=== PATIENT | male | born 1940 | race Caucasian/White ===

== ENCOUNTER 2017-09-04 08:21 | Day surgery (SDC) | payer OTHER ==
--- NOTE | 2017-09-03 16:32 | RAD REPORT ---
EXAM DESCRIPTION: Alok Cardoza (2 Views)09/03/2017 4:17 pm CLINICAL HISTORY: Coronary artery disease/preop COMPARISON: 2016 FINDINGS: The lungs appear clear of acute infiltrate. The heart is mildly enlarged. Post surgical c hanges involve the chest. IMPRESSION: No acute abnormalities displayed
[2017-09-03 17:09] LABS: Absolute Lymphocytes (CBC) 1.8 K/uL (0.7-4.9); Absolute Monocytes 0.8 K/uL (0.1-1.3); Absolute Neutrophil 6.6 K/uL (1.8-8.0); Basophils % 0.7 % (0-1.3); Eosinophils % 4.8 % (0-4.4); Hematocrit 41.3 % (39.6-49.0); Lymphocytes % 18.8 % (15.3-44.8); MCV 87.6 fL (80-100); MPV 9.2 fL (7.6-11.3); Monocytes % 8.1 % (3.3-12.3); RBC Red Blood Cell Count 4.71 M/uL (4.33-5.43)
[2017-09-03 17:12] LABS: Protime INR 0.95
[2017-09-03 17:21] LABS: BUN Blood Urea Nitrogen 13 mg/dL (6-20); Bicarbonate 30 mEq/L (21-31); Glucose Level 125 mg/dL (65-120); Sodium Level 141 mEq/L (135-145)
[2017-09-04] MEDS ORDERED: NA CHLORIDE 0.9% 500 ML ONE (08:32)
[2017-09-04] MEDS ORDERED: MIDAZOLAM HCL 2 MG/2 ML INJ ONE ×2 (09:27→09:46)
[2017-09-04] MEDS ORDERED: LIDOCAINE 1% 20 ML MDV ONE ×2 (09:27→11:00)
[2017-09-04] MEDS ORDERED: FENTANYL CITR 100 MCG/2 ML ONE (09:27)
[2017-09-04] MEDS ORDERED: HEPA 1000U/500MLS 1,000 UNIT/500 ML BAG IV ONE ×2 (09:27→11:00)
[2017-09-04] MEDS ORDERED: NA CHLORIDE 0.9% 50 ML ONE (09:41)
[2017-09-04] MEDS ORDERED: ATROPINE SULF 1 MG/10 ML SYR IV ONE (09:41)
[2017-09-04] MEDS ORDERED: NITROGLYCERIN/D5W 25 MG/250 ML BTL IV ONE (11:20)
[2017-09-04] MEDS ORDERED: CLOPIDOGREL 75 MG TABLET ONE (12:18)
[2017-09-04] MEDS ORDERED: ZOLPIDEM TARTRATE 5 MG TABLET PO PRN (13:51)
[2017-09-04] MEDS ORDERED: Morphine 2 MG/2 ML SYR IV PRN (13:52)
[2017-09-04] MEDS ORDERED: NITROGLYCERIN 0.4 MG/TAB SL PRN (14:00)
[2017-09-04] MEDS ORDERED: NA CHLORIDE 0.9% 1,000 ML IV SCH (14:00)
[2017-09-04] MEDS: ACETAMINOPHEN 325 MG TABLET PO PRN ×2 (15:11→19:28)
[2017-09-04 18:06] VITALS: BMI 33.5
[2017-09-05 00:21] VITALS: O2SAT 95
[2017-09-05 04:41] LABS: Absolute Lymphocytes (CBC) 1.3 K/uL (0.7-4.9); Absolute Monocytes 0.7 K/uL (0.1-1.3); Basophils % 0.4 % (0-1.3); Eosinophils % 5.1 % (0-4.4); Hematocrit 39.6 % (39.6-49.0); Lymphocytes % 15.5 % (15.3-44.8); MCH 29.1 pg (27.0-35.0); MCV 87.4 fL (80-100); MPV 8.8 fL (7.6-11.3); Monocytes % 8.5 % (3.3-12.3); RBC Red Blood Cell Count 4.54 M/uL (4.33-5.43)
[2017-09-05 04:53] LABS: BUN Blood Urea Nitrogen 9 mg/dL (6-20); Bicarbonate 28 mEq/L (21-31); Glucose Level 153 mg/dL (65-120); HDL Cholesterol 61 mg/dL (27-67); LDL Cholesterol, Calculated 60 (<130); Potassium 3.9 mEq/L (3.6-5.0); Sodium Level 140 mEq/L (135-145)
[2017-09-05] MEDS: ACETAMINOPHEN 325 MG TABLET PO PRN (07:41)
[2017-09-05] MEDS ORDERED: ASPIRIN 81 MG CHEWABLE TABLET PO SCH (09:00)
[2017-09-05] MEDS ORDERED: CLOPIDOGREL 75 MG TABLET PO SCH (09:00)
[2017-09-05 10:14] VITALS: BP 126/63; TEMP 97.8
--- NOTE | 2017-09-05 11:58 | EKG ---
Test Date: 2017-09-05 Test Time: 08:37:42 Washing And Screening Plant Supervisor: AMANUEL MEASUREMENT RESULTS: Intervals: Rate: 80 FL: 168 QRSD: 132 QT: 398 QTc: 459 [place]: P: -21 FL: 168 QRS: -49 T: 156 INTERPRETIVE STATEMENTS: Sinus rhythm with premature atrial complexes with aberrant conduction Left axis deviation Nonspecific intraventricular block Inferior infarct, age undetermined T wave abnormality, consider lateral ischemia Abnormal ECG Compared to ECG 04/13/2012 14:15:32 Atrial premature complex(es) now present Aberrant conduction of supraventricular beat(s) now present First degree AV block no longer present Electronically Signed On 09-05-17 11:58:28 CDT by Naman Xiao
--- NOTE | 2017-09-05 17:04 | OP ---
Surgeon: Nicko Garza MD Research Intern: Linda Martinez. Indications: Mr. Coles was admitted as an outpatient for heart catheterization as well as abdominal a ngiogram with runoff initially. He is a 77-year-old with documented coronary artery disease, positiv e Cardiolite, positive arterial Doppler, and claudication. Description Of Procedure: When he came in, he was given 2 mg of Versed for IV sedation, prepped and draped in the routine sterile fashion. The procedure eventually ended up being a selective coronary artery left heart catheterization, vein graft injection, ABRAMS injection, angioplasty, and stent of th e saphenous vein graft to the obtuse marginal. The catheterization was done with a 6-Arabic sheath i ntroduced in the left common femoral artery. The right common femoral artery is completely occluded. Abdominal angiogram with runoff were cancelled because the patient received enough contrast to do t he heart catheterization and intervention. From a coronary standpoint, he had a completely occluded left main. He had a saphenous vein graft to the diagonal that was occluded. The saphenous vein oswald t to the OM showing a 90% proximal stenosis. The saphenous vein graft to the RCA that was occluded. The ABRAMS was open and it actually gave collaterals to the distal RCA. The graft to the obtuse linden nal was dilated with a 2.25 x 15 Emerge balloon and a stent of 2.25 x 16 Synergy was placed with 0% r esidual. No complications. We used 3DRC guide catheter with side holes and a [place] wire. He recei sharon Angiomax, Plavix, and aspirin during the procedure. Complications: None. Blood Loss: 10 cc. Total Conscious Sedation: 1 hour. Final Diagnoses: Coronary artery disease status post angioplasty and stent and graft to the obtuse m arginal. Ticker Installer: Nicko Garza MD. Plan: We will cancel the abdominal angiogram with runoff for now and plan to do within the next 2-3 weeks. JENNY/NIALL Voice ID: [id number] Report ID: [id number]
== END 2017-09-05 10:52 | disposition home or self-care (01) ==
LOC: CCL 08:21 → 4TH 12:07 → CCL 09-05 10:52
DX: I25.10 Atherosclerotic heart disease of native coronary artery without angina pectoris (principal); I25.810 Atherosclerosis of coronary artery bypass graft(s) without angina pectoris; I25.82 Chronic total occlusion of coronary artery; I70.213 Atherosclerosis of native arteries of extremities with intermittent claudication, bilateral legs; I10 Essential (primary) hypertension; E78.5 Hyperlipidemia, unspecified; E78.6 Lipoprotein deficiency; E11.9 Type 2 diabetes mellitus without complications; Z95.5 Presence of coronary angioplasty implant and graft; Z87.891 Personal history of nicotine dependence
CPT/HCPCS: 36415 ×2; 71046; 80048 ×2; 80061; 82962; 85025 ×2; 85347 ×2; 85610; 85730; 93005; 93455; C1725; C1760; C1893; C9604; J0583; J2250 ×2; J3010

== ENCOUNTER 2017-09-25 06:36 | Day surgery (SDC) | payer OTHER ==
[2017-09-20 14:10] LABS: Absolute Lymphocytes (CBC) 1.8 K/uL (0.7-4.9); Absolute Monocytes 0.7 K/uL (0.1-1.3); Absolute Neutrophil 5.3 K/uL (1.8-8.0); Basophils % 0.6 % (0-1.3); Hematocrit 39.9 % (39.6-49.0); Lymphocytes % 20.9 % (15.3-44.8); MCH 29.2 pg (27.0-35.0); MCV 87.9 fL (80-100); MPV 8.7 fL (7.6-11.3); Monocytes % 8.4 % (3.3-12.3); RBC Red Blood Cell Count 4.53 M/uL (4.33-5.43)
[2017-09-20 14:15] LABS: Protime INR 0.96
[2017-09-20 15:18] LABS: BUN Blood Urea Nitrogen 14 mg/dL (6-20); Bicarbonate 27 mEq/L (21-31); Glucose Level 115 mg/dL (65-120); Potassium 3.8 mEq/L (3.6-5.0); Sodium Level 141 mEq/L (135-145)
[2017-09-25] MEDS ORDERED: LIDOCAINE 1% 20 ML MDV ONE (06:44)
[2017-09-25] MEDS ORDERED: NA CHLORIDE 0.9% 500 ML ONE (06:44)
[2017-09-25] MEDS ORDERED: HEPA 1000U/500MLS 2,000 UNIT/1,000 ML BAG IV ONE (07:32)
[2017-09-25] MEDS ORDERED: MIDAZOLAM HCL 2 MG/2 ML INJ ONE (07:44)
[2017-09-25] MEDS ORDERED: FENTANYL CITR 100 MCG/2 ML ONE (07:44)
[2017-09-25] MEDS ORDERED: HEPARIN 5000 UNIT/ML 1 ML VIAL ONE (08:30)
[2017-09-25 12:52] VITALS: BP 138/63
[2017-09-25 12:53] VITALS: TEMP 97.6; O2SAT 96
--- NOTE | 2017-09-27 08:14 | OP ---
Surgeon: Nicko Garza MD Solder Sprayer: Janet Martinez. The patient cannot have the surgery if we need to do it before February of next year because he needs to be on the Plavix till then. He just recently had a vein graft angioplasty and stent of the . Procedure: Abdominal angiogram with runoff with attempted angioplasty of the right common iliac annabella ry. Indication For The Procedure: Peripheral vascular disease and claudication. Description Of Procedure: The patient was brought in as an outpatient, prepped and draped in the rou lili sterile fashion, given 2 mg of Versed for IV sedation. A 6-Bulgarian sheath was introduced into le ft common femoral artery. A pigtail catheter was advanced above the renal. Abdominal angiography re vealed normal renal, normal hepatic and splenic artery. Distal was normal. The left comm on iliac was normal with minimal plaquing distally in the SFA. The right common iliac artery was com pletely occluded at the ostium with reconstitution at about the common femoral artery area with minim al disease at the distal SFA on the right side. I decided to attempt to open up the right common doreen ac artery . The patient is symptomatic on the right leg. I cannulated the right common fe moral artery with a 6-Bulgarian sheath. I attempted J-wire glidewire, all of which was done to penetrate the lesion of the right common iliac artery . Total conscious bruce tion was 30 minutes. The patient tolerated the procedure well. Blood loss was 5 cc. There were no complications. Final Diagnosis: Severe peripheral arterial disease. Plan: For a possible aortofemoral surgery or a fem-fem bypass. JENNY/NIALL Voice ID: [id number] Report ID: [id number]
== END 2017-09-25 13:11 | disposition home or self-care (01) ==
LOC: CCL 06:36
DX: I70.213 Atherosclerosis of native arteries of extremities with intermittent claudication, bilateral legs (principal); I70.92 Chronic total occlusion of artery of the extremities; I25.10 Atherosclerotic heart disease of native coronary artery without angina pectoris; R07.89 Other chest pain; I10 Essential (primary) hypertension; E11.9 Type 2 diabetes mellitus without complications; E78.5 Hyperlipidemia, unspecified; E78.6 Lipoprotein deficiency; Z87.891 Personal history of nicotine dependence; Z95.1 Presence of aortocoronary bypass graft
CPT/HCPCS: 36415; 37220; 75630; 80048; 82962 ×2; 85025; 85347; 85610; 85730; C1893; J1644; J2250; J3010

== ENCOUNTER 2018-04-11 21:22 | Inpatient (IN) | payer OTHER ==
[2018-04-11] MEDS ORDERED: AMIODARONE HCL 150 MG/3 ML INJ IV ONE (21:39)
[2018-04-11] MEDS ORDERED: AMIODARONE HCL 900 MG in Dextrose 5%-Water 482 ML IV SCH (21:45)
[2018-04-11] MEDS ORDERED: AMIODARONE Inj 900 MG/18 mL (=50 MG/ML) VIAL IV ONE (21:47)
[2018-04-11 22:04] LABS: Absolute Monocytes 0.9 K/uL (0.1-1.3); Absolute Neutrophil 9.1 K/uL (1.8-8.0); Basophils % 0.3 % (0-1.3); Eosinophils % 0.6 % (0-4.4); Lymphocytes % 9.3 % (15.3-44.8); MCH 29.5 pg (27.0-35.0); MCV 87.5 fL (80-100); MPV 9.1 fL (7.6-11.3); Monocytes % 8.4 % (3.3-12.3); RBC Red Blood Cell Count 4.46 M/uL (4.33-5.43)
[2018-04-11 22:06] LABS: Protime INR 1.12
[2018-04-11 22:42] LABS: Albumin 3.7 g/dL (3.4-5.0); Bilirubin Direct 0.3 mg/dL (0-0.2); Bilirubin Total 1.1 mg/dL (0.2-1.0); Magnesium 1.7 mg/dL (1.8-2.4); Potassium 3.7 mmol/L (3.5-5.1); Protein, Total 6.9 g/dL (6.4-8.2)
--- NOTE | 2018-04-11 22:42 | ER ---
Nurse's Notes [facility] Name: Jayden Coles Age: 78 yrs Sex: Male : 1940 Arrival Date: 04/11/2018 Time: 21:29 Bed 5 Private MD: Diagnosis: Ventricular tachycardia;Weakness;Hypoxemia Presentation: 04/11 21:39 Presenting complaint: EMS states: Pt was placed on heart monitor by Dr. Garza on tl2 Sunday. Pt started feeling dizzy and weak today with episodes of chest pain and left shoulder pain. Pt given 324 aspirin and 1 nitro on EMS. Pt began having runs of Vtach on arrival to ED. Pt denies shortness of breath or severe pain, Pt is AOx4. Transition of care: patient was not received from another setting of care. Onset of symptoms was April 11, 2018. Risk Assessment: Do you want to hurt yourself or someone else? Patient reports no desire to harm self or others. Initial Sepsis Screen: Does the patient meet any 2 criteria? No. Patient's initial sepsis screen is negative. Does the patient have a suspected source of infection? No. Patient's initial sepsis screen is negative. Care prior to arrival: Medication(s) given: ASA, 81 mg, x 4, Nitroglycerin, 0.4 mg SL x 1. 21:39 Method Of Arrival: EMS: [facility] tl2 21:39 Acuity: RIRI 2 tl2 Triage Assessment: 21:46 General: Appears in no apparent distress. uncomfortable, Behavior is calm, cooperative, tl2 appropriate for age. Pain: Complains of pain in left shoulder. Neuro: Level of Consciousness is awake, alert, obeys commands, Oriented to person, place, time, situation. Cardiovascular: Denies chest pain, shortness of breath. Respiratory: Reports cough that is Airway is patent Respiratory effort is even, unlabored, Respiratory pattern is regular, symmetrical. GI: No signs and/or symptoms were reported involving the gastrointestinal system. : No signs and/or symptoms were reported regarding the genitourinary system. Derm: Skin is pink, warm \T\ dry. Historical: - Allergies: 21:46 No Known Allergies; tl2 - Home Meds: 21:46 metformin 500 mg Oral tab 1 tab 2 times per day [Active]; tamsulosin 0.4 mg oral cp24 1 tl2 cap once daily [Active]; atorvastatin 20 mg oral tab 1 tab once daily [Active]; clopidogrel 75 mg oral tab 1 tab once daily [Active]; metoprolol tartrate 50 mg Oral tab 1 tab 2 times per day [Active]; doxazosin 2 mg oral tab 1 tab once daily [Active]; levothyroxine 112 mcg tab 1 tab once daily [Active]; gabapentin 300 mg oral cap 1 cap 3 times per day [Active]; glimepiride 2 mg Oral tab 1 tab once daily [Active]; amlodipine 10 mg tab 1 tab once daily [Active]; Anoro Ellipta 62.5-25 mcg/actuation inhalation dsdv 1 puff once daily [Active]; - PMHx: 21:46 COPD; Diabetes - NIDDM; Atrial Fib; Hypertension; tl2 - PSHx: 21:46 stent; bypass; tl2 - Immunization history:: Adult Immunizations up to date. - Social history:: Smoking status: Patient/guardian denies using tobacco. - Ebola Screening: : No symptoms or risks identified at this time. Screenin:50 Abuse screen: Denies threats or abuse. Nutritional screening: No deficits noted. tl2 Tuberculosis screening: No symptoms or risk factors identified. Fall Risk IV access (20 points). Assessment: 21:48 General: see triage assessment. tl2 21:58 Reassessment: Pt had short run of Vtach lasting 3 seconds. Pt asymptomatic. tl2 22:37 Reassessment: Patient appears in no apparent distress at this time. Patient and/or tl2 family updated on plan of care and expected duration. Pain level reassessed. Patient is alert, oriented x 3, equal unlabored respirations, skin warm/dry/pink. Pt resting comfortably, no complaints at this time. Amiodarone infusing. 23:19 Reassessment: Patient appears in no apparent distress at this time. Patient and/or tl2 family updated on plan of care and expected duration. Pain level reassessed. Patient is alert, oriented x 3, equal unlabored respirations, skin warm/dry/pink. Awaiting for ICU assignment. 23:40 Reassessment: Pt had another two short runs of Vtach, BP remains stable and pt remains tl2 asymptomatic. Will call report to get pt transferred to unit. Vital Signs: 21:25 BP 138 / 84; Pulse 103; Resp 20; Pulse Ox 89% on 4 lpm NC; Weight 95.25 kg; Height 5 tl2 ft. 10 in. (177.80 cm); 21:30 BP 124 / 73; Pulse 108; Resp 20; Pulse Ox 87% on 4 lpm NC; tl2 21:50 BP 117 / 70; Pulse 118; Resp 20; Pulse Ox 88% on 4 lpm NC; tl2 22:19 BP 116 / 81; Pulse 92; Resp 20; Pulse Ox 87% on 4 lpm NC; tl2 22:36 BP 124 / 72; Pulse 84; Resp 20; Pulse Ox 89% on 4 lpm NC; tl2 23:19 BP 120 / 66; Pulse 88; Resp 21; Pulse Ox 91% on 4 lpm NC; tl2 23:40 BP 118 / 64; Pulse 94; Resp 20; Pulse Ox 92% on 4 lpm NC; tl2 21:25 Body Mass Index 30.13 (95.25 kg, 177.80 cm) tl2 Vitals: 21:25 Cardiac Rhythm Assessment Atrial fibrillation. tl2 22:19 Cardiac Rhythm Assessment Atrial fibrillation. tl2 22:36 Cardiac Rhythm Assessment Atrial fibrillation W/PVC's. tl2 ED Course: 21:29 Patient arrived in ED. fc 21:31 EKG done, by ED staff, reviewed by Freddy Godoy MD. mt 21:32 Jami Nolan, MARISSA is Primary Nurse. aj 21:37 Freddy Godoy MD is Attending Physician. tw4 21:41 Triage completed. tl2 21:46 Arm band placed on right wrist. EKG completed in triage. Results shown to MD. tl2 21:50 Maintain EMS IV. Dressing intact. Good blood return noted. Site clean \T\ dry. Gauge \T\ tl 2 site: 20 g L AC. 21:50 Inserted saline lock: 20 gauge in right antecubital area, using aseptic technique. tl2 Blood collected. 21:50 Patient has correct armband on for positive identification. Bed in low position. Call tl2 light in reach. Side rails up X2. Adult w/ patient. 21:52 XRAY Chest (1 view) In Process Unspecified. EDMS 21:55 Primary Nurse role handed off by Jami Nolan, RN tl2 21:55 Coleen Meier RN is Primary Nurse. tl2 22:39 Carine Alonzo MD is Hospitalizing Provider. tw4 22:42 Notified ED physician of a critical lab result(s). trop 0.72. 04/12 00:10 Murray cath inserted, using sterile technique, 16 Fr., by airplane electrician, balloon inflated, to tl2 gravity drainage, urine specimen collected. returned clear yellow urine. Patient tolerated well. 00:39 No provider procedures requiring assistance completed. Patient admitted, IV remains in tl2 place. Administered Medications: 04/11 21:38 Drug: amiodarone 150 mg Route: IVP; Site: left antecubital; tl2 23:00 Follow up: Response: No adverse reaction; Cardiac rhythm is unchanged tl2 21:45 Drug: amiodarone 900 mg, D5W 500 ml Route: IVPB; Rate: 1 mg/min; Site: right fc antecubital; 04/12 00:41 Follow up: IV Status: Infusion continued upon admission tl2 04/11 23:17 Drug: Heparin (AZ-Bolus No thrombolytic) - HEParin 60 units/kg {Co-Signature: aa1 tl2 (Melani Miranda RN).} Route: IVP; Site: left antecubital; 04/12 00:41 Follow up: Response: No adverse reaction tl2 04/11 23:17 Drug: Lasix 40 mg Route: IVP; Site: left antecubital; tl2 04/12 00:41 Follow up: Response: No adverse reaction tl2 04/11 23:18 Drug: Heparin ([place] Drip) 12 units/kg/hr - (HEParin 76145 units, D5W 500 ml) tl2 {Co-Signature: aa1 (Melani Miranda RN).} Route: IV; Rate: calculated rate; Site: left antecubital; 04/12 00:41 Follow up: IV Status: Infusion continued upon admission tl2 Outcome: 04/11 22:41 Decision to Hospitalize by Provider. tw4 04/12 00:40 Admitted to ICU accompanied by nurse, accompanied by tech, family with patient, via tl2 stretcher, room 7, with oxygen, on monitor, with chart, Report called to MARISSA Serrano Condition: stable Discharge instructions given to patient, family, Instructed on the need for admit. 00:42 Patient left the ED. tl2 Signatures: Dispatcher [employer] Jami Ratliff RN Angelita Garcia RN RN Coleen Meier RN RN 2 Abigail Carrillo mt, Terrence, MD MD tw4 Melani Miranda RN aa1 Corrections: (The following items were deleted from the chart) 04/11 21:50 21:46 BP 138 / 84; Pulse 103bpm; Resp 20bpm; Pulse Ox 89% 3 lpm Nasal Cannula; tl2 tl2 22:20 21:25 BP 138 / 84; Pulse 103bpm; Resp 20bpm; Pulse Ox 89% 3 lpm Nasal Cannula; tl2 tl2 23:01 21:25 BP 138 / 84; Pulse 103bpm; Resp 20bpm; Pulse Ox 89% 3 lpm Nasal Cannula; 99.79 tl2 kg; Height 5 ft. 10 in.; BMI: 31.5; tl2 04/12 00:39 04/11 21:30 BP 124 / 73; Pulse 108bpm; Resp 20bpm; Pulse Ox 87% 3 lpm Nasal Cannula; tl2tl2 04/12 00:39 04/11 21:50 BP 117 / 70; Pulse 118bpm; Resp 20bpm; Pulse Ox 88% 3 lpm Nasal Cannula; tl2tl2 04/12 00:39 04/11 22:19 BP 116 / 81; Pulse 92bpm; Resp 20bpm; Pulse Ox 87% 3 lpm Nasal Cannula; tl2 tl2 04/12 00:39 04/11 22:36 BP 124 / 72; Pulse 84bpm; Resp 20bpm; Pulse Ox 89% 3 lpm Nasal Cannula; tl2 tl2 04/12 00:39 04/11 21:25 BP 138 / 84; Pulse 103bpm; Resp 20bpm; Pulse Ox 89% 3 lpm Nasal Cannula; tl2 95.25 kg; Height 5 ft. 10 in.; BMI: 30.1; tl2 04/12 00:39 04/11 23:19 BP 120 / 66; Pulse 88bpm; Resp 21bpm; Pulse Ox 91% 3 lpm Nasal Cannula; tl2 tl2
[2018-04-11 22:43] LABS: Troponin (Emerg Dept Use Only) 0.72 ng/mL (0.0-0.045)
--- NOTE | 2018-04-11 22:43 | EDPHYS ---
Physician Documentation [facility] Name: Jayden Head Age: 78 yrs Sex: Male : 1940 Arrival Date: 04/11/2018 Time: 21:29 Bed 5 Private MD: ED Physician Freddy Godoy HPI: 04/11 23:45 This 78 yrs old Male presents to ER via EMS with complaints of Arrhythmia. tw4 23:45 The patient or guardian reports chest pain that is located primarily in the anterior tw4 chest wall. Onset: today. The pain does not radiate. Associated signs and symptoms: The patient has no apparent associated signs or symptoms. The chest pain is described as dull. Duration: The patient or guardian reports a single episode, that is still ongoing, but improving. Modifying factors: The symptoms are alleviated by nothing. the symptoms are aggravated by nothing. Severity of pain: At its worst the pain was moderate in the emergency department the pain is unchanged. EMS care prior to arrival includes: IV fluids, supplemental oxygen. The patient has experienced a previous episode. The patient has been recently seen at the [facility] Emergency Department, a couple of weeks ago. Historical: - Allergies: 21:46 No Known Allergies; tl2 - Home Meds: 21:46 metformin 500 mg Oral tab 1 tab 2 times per day [Active]; tamsulosin 0.4 mg oral cp24 1 tl2 cap once daily [Active]; atorvastatin 20 mg oral tab 1 tab once daily [Active]; clopidogrel 75 mg oral tab 1 tab once daily [Active]; metoprolol tartrate 50 mg Oral tab 1 tab 2 times per day [Active]; doxazosin 2 mg oral tab 1 tab once daily [Active]; levothyroxine 112 mcg tab 1 tab once daily [Active]; gabapentin 300 mg oral cap 1 cap 3 times per day [Active]; glimepiride 2 mg Oral tab 1 tab once daily [Active]; amlodipine 10 mg tab 1 tab once daily [Active]; Anoro Ellipta 62.5-25 mcg/actuation inhalation dsdv 1 puff once daily [Active]; - PMHx: 21:46 COPD; Diabetes - NIDDM; Atrial Fib; Hypertension; tl2 - PSHx: 21:46 stent; bypass; tl2 - Immunization history:: Adult Immunizations up to date. - Social history:: Smoking status: Patient/guardian denies using tobacco. - Ebola Screening: : No symptoms or risks identified at this time. ROS: 23:45 Constitutional: Negative for fever, chills, and weight loss, Eyes: Negative for injury, tw4 pain, redness, and discharge, Respiratory: Negative for shortness of breath, cough, wheezing, and pleuritic chest pain, Abdomen/GI: Negative for abdominal pain, nausea, vomiting, diarrhea, and constipation. 23:45 Back: Negative for injury and pain, MS/Extremity: Negative for injury and deformity, Skin: Negative for injury, rash, and discoloration, Neuro: Negative for headache, weakness, numbness, tingling, and seizure. 23:45 Cardiovascular: Positive for chest pain, Negative for edema, orthopnea, palpitations, paroxysmal nocturnal dyspnea. Exam: 23:45 Constitutional: This is a well developed, well nourished patient who is awake, alert, tw4 and in no acute distress. Head/Face: Normocephalic, atraumatic. Chest/axilla: Normal chest wall appearance and motion. Nontender with no deformity. No lesions are appreciated. Respiratory: Lungs have equal breath sounds bilaterally, clear to auscultation and percussion. No rales, rhonchi or wheezes noted. No increased work of breathing, no retractions or nasal flaring. Abdomen/GI: Soft, non-tender, with normal bowel sounds. No distension or tympany. No guarding or rebound. No evidence of tenderness throughout. Back: No spinal tenderness. No costovertebral tenderness. Full range of motion. 23:45 Skin: Warm, dry with normal turgor. Normal color with no rashes, no lesions, and no evidence of cellulitis. MS/ Extremity: Pulses equal, no cyanosis. Neurovascular intact. Full, normal range of motion. Neuro: Awake and alert, GCS 15, oriented to person, place, time, and situation. Cranial nerves II-XII grossly intact. Motor strength 5/5 in all extremities. Sensory grossly intact. Cerebellar exam normal. Normal gait. 23:45 Cardiovascular: Rate: tachycardic, Rhythm: regular. 04/12 00:10 ECG was reviewed by the Attending Physician. tw4 Vital Signs: 04/11 21:25 BP 138 / 84; Pulse 103; Resp 20; Pulse Ox 89% on 4 lpm NC; Weight 95.25 kg; Height 5 tl2 ft. 10 in. (177.80 cm); 21:30 BP 124 / 73; Pulse 108; Resp 20; Pulse Ox 87% on 4 lpm NC; tl2 21:50 BP 117 / 70; Pulse 118; Resp 20; Pulse Ox 88% on 4 lpm NC; tl2 22:19 BP 116 / 81; Pulse 92; Resp 20; Pulse Ox 87% on 4 lpm NC; tl2 22:36 BP 124 / 72; Pulse 84; Resp 20; Pulse Ox 89% on 4 lpm NC; tl2 23:19 BP 120 / 66; Pulse 88; Resp 21; Pulse Ox 91% on 4 lpm NC; tl2 23:40 BP 118 / 64; Pulse 94; Resp 20; Pulse Ox 92% on 4 lpm NC; tl2 21:25 Body Mass Index 30.13 (95.25 kg, 177.80 cm) tl2 MDM: 21:39 Patient medically screened. tw4 23:45 Differential diagnosis: abnormal EKG, acute myocardial infarction, acute pericarditis, tw4 mitral valve prolapse, pulmonary embolus, stable angina, unstable angina. HEART Score: History: Highly Suspicious (2), ECG: Non specific repolarization disturbance / LBTB / PM (1), Age: > or = 65 years (2), Risk Factors: > or = 3 Risk factors for atherosclerotic disease (2), Troponin: > or = 3 x Normal Limit (2). The patient was not given aspirin in the Emergency Department. Patient reports taking aspirin within the past 24 hours. Data reviewed: vital signs, nurses notes. Data interpreted: falafel cart cook: rhythm is normal sinus rhythm, Pulse oximetry: Interpretation: normal. Counseling: I had a detailed discussion with the patient and/or guardian regarding: the historical points, exam findings, and any diagnostic results supporting the discharge/admit diagnosis, lab results. Physician consultation: Carine Alonzo MD regarding admission, need to come to ED to see patient, need to evaluate the patient as soon as possible, and will see patient in ED. 04/12 00:10 LANCE Risk Score: 1 - patient's age is greater or equal to 65 years, 1 - Three or more tw4 CAD risk factors, 1- Known CAD, 1 - ASA use in past 7 days, 1 - Recent [<24hrs] Severe Angina, 1 - Elevated Cardiac Markers, TOTAL SCORE = 6. Test interpretation: by ED physician or midlevel provider: ECG, plain radiologic studies. ED course: Pt brought to the ED after having CP and runs of ventricular tachycardia. D/W Dr Xiao pts information security architect for concern of cardiac ischemia. Will start on amiodarone drip and bolus. Will start heparin. Dr Xiao will see pt in the am. Pt HR improved after Amiodarone administration. Will admit to ICU for further management. During ED stay pt had additional runs of ventricular tachycardia. Dr Trinh notified will continue with ICU admission.. 04/11 21:38 Order name: Basic Metabolic Panel; Complete Time: 23:44 tw4 04/11 21:38 Order name: CBC with Diff 04/11 21:38 Order name: LFT's 04/11 21:38 Order name: Magnesium; Complete Time: 23:44 tw4 04/11 23:44 Interpretation: Abnormal: MG 1.7. tw04/11 21:38 Order name: NT PRO-BNP; Complete Time: 22:51 tw4 04/11 21:38 Order name: PT-INR 04/11 21:38 Order name: Troponin (emerg Dept Use Only) tw04/11 21:38 Order name: XRAY Chest (1 view) tw04/11 21:38 Order name: EKG; Complete Time: 21:39 tw4 04/11 21:38 Order name: Cardiac monitoring; Complete Time: 21:40 4 04/11 21:38 Order name: EKG - Nurse/Tech; Complete Time: 21:40 tw4 04/11 21:38 Order name: IV Saline Lock; Complete Time: 21:40 tw4 04/11 21:38 Order name: Labs collected and sent; Complete Time: 21:40 4 04/11 21:38 Order name: O2 Per Protocol; Complete Time: 21:40 tw04/11 21:38 Order name: O2 Sat Monitoring; Complete Time: 21:40 04/11 23:56 Order name: Trevor; Complete Time: 23:56 tl2 EC:10 Rate is 106 beats/min. Rhythm is regular, A fib. QRS [place] is Normal. QRS interval is tw4 normal. QT interval is normal. Q waves are Present. Q waves are Old in leads II, V2, V3, V4, V5, V6. T waves are Normal. No ST changes noted. Clinical impression: Abnormal EKG without significant change. Interpreted by me. Reviewed by me. Administered Medications: 04/11 21:38 Drug: amiodarone 150 mg Route: IVP; Site: left antecubital; tl2 23:00 Follow up: Response: No adverse reaction; Cardiac rhythm is unchanged tl2 21:45 Drug: amiodarone 900 mg, D5W 500 ml Route: IVPB; Rate: 1 mg/min; Site: right fc antecubital; 04/12 00:41 Follow up: IV Status: Infusion continued upon admission tl2 04/11 23:17 Drug: Heparin (LA-Bolus No thrombolytic) - HEParin 60 units/kg {Co-Signature: aa1 tl2 (Melani Miranda RN).} Route: IVP; Site: left antecubital; 04/12 00:41 Follow up: Response: No adverse reaction tl2 04/11 23:17 Drug: Lasix 40 mg Route: IVP; Site: left antecubital; tl2 04/12 00:41 Follow up: Response: No adverse reaction tl2 04/11 23:18 Drug: Heparin ([place] Drip) 12 units/kg/hr - (HEParin 83750 units, D5W 500 ml) tl2 {Co-Signature: aa1 (Melani Miranda RN).} Route: IV; Rate: calculated rate; Site: left antecubital; 04/12 00:41 Follow up: IV Status: Infusion continued upon admission tl2 Disposition: 04/11/18 22:41 Hospitalization ordered by Carine Alonzo for Inpatient Admission. Preliminary diagnosis are Ventricular tachycardia, Weakness, Hypoxemia. - Bed requested for Intensive Care Unit. - Status is Inpatient Admission. tl2 - Condition is Fair. - Problem is new. - Symptoms have improved. UTI on Admission? No Signatures: Dispatcher [employer] EDMS Angelita Adhikari RN RN Katy Mooney RN RN cg Knox, Taylor, RN RN tl2 Freddy Godoy MD MD tw4 Melani Miranda RN aa1 Corrections: (The following items were deleted from the chart) 04/11 23:25 22:41 Hospitalization Ordered by Carine Alonzo MD for Inpatient Admission. Preliminary cg diagnosis is Ventricular tachycardia; Weakness; Hypoxemia. Bed requested for Intensive Care Unit. Status is Inpatient Admission. Condition is Fair. Problem is new. Symptoms have improved. UTI on Admission? No. tw4 23:44 23:44 Normal except: MG 1.7. tw4 tw4 04/12 00:42 04/11 23:25 04/11/2018 22:41 Hospitalization Ordered by Carine Alonzo MD for Inpatient tl2 Admission. Preliminary diagnosis is Ventricular tachycardia; Weakness; Hypoxemia. Bed requested for Intensive Care Unit. Status is Inpatient Admission. Condition is Fair. Problem is new. Symptoms have improved. UTI on Admission? No. cg
[2018-04-11] MEDS ORDERED: HEPARIN/D5W 25,000 UNIT/500 ML BAG IV ONE (23:13)
[2018-04-11] MEDS ORDERED: HEPARIN 5000 UNIT/ML 1 ML VIAL ONE (23:13)
[2018-04-11] MEDS ORDERED: FUROSEMIDE 40 MG/4 ML VIAL ONE (23:13)
--- NOTE | 2018-04-12 00:10 | P.HP ---
Certification for Inpatient Patient admitted to: Inpatient With expected LOS: >2 Midnights Practitioner: I am a practitioner with admitting privileges, knowledge of patient current condition, hospital course, and medical plan of care. Services: Services provided to patient in accordance with Admission requirements found in Title 42 Section 412.3 of the Code of Federal Regulations Patient History Date of Service: 04/11/18 Reason for admission: ACS/V-Tach History of Present Illness: Mr Coles is an 78 years old male with history of DM II, COPD, HTN, dyslipidemia, CAD S/P CABG and stenting, chronic AFib, who had a syncopal episode about 6 days ago. Early this week, he saw Dr Garza, who ordered a holter monitor. Today, the patient start feeling dizzy, weak, and has had chest pain, substernal , radiated to lerf shoulder and neck. Intensity was about 3/4, associated with nausea and diaphoresis episode. He denied more SOB than usual. He called his daughter and told her about her symptoms, subsequently, his daughter called 911. When EMS arrived, found the patient on the recliner. EKG initially showed A.Fib with frequents PVC's. Then the patient start complaining of chest pain again. New EKG was done and he was on V-Tach. The arrhytmia, last for a few seconds and than came back to A.Fib. The patient ,then was transferred to ED for evaluation. Initial Trop I 0.7, Dr Garza was called by Dr Godoy, and he recommended to start amiodarone and heparin drip. Dr Garza will see the patient in the morning. During his stay in ED, he has repeated a few more runs of V-Tach lasting for a few seconds. Allergies No Known Allergies Allergy (Verified 09/20/17 13:26) Home medications list reviewed: Yes Home Medications: Amlodipine [Norvasc] 10 mg PO DAILY 09/04/17 Cetirizine HCl [All Day Allergy] 10 mg PO DAILY 09/04/17 Clopidogrel Bisulfate [Plavix*] 75 mg PO DAILY 09/04/17 Doxazosin [Cardura*] 2 mg PO BEDTIME 09/04/17 Fluticasone [Flonase 50MCG Nasal [place]*] 1 inh IN DAILY 09/04/17 Gabapentin [Gralise] 300 mg PO BEDTIME 09/04/17 Glimepiride [Amaryl] 2 mg PO DAILY 09/04/17 Metformin ER [Glucophage ER*] 500 mg PO BID 09/04/17 Metoprolol Tartrate [Lopressor] 50 mg PO BID 09/04/17 Rosuvastatin [Crestor*] 10 mg PO DAILY 09/04/17 Tamsulosin [Flomax*] 0.4 mg PO DAILY 09/04/17 - Past Medical/Surgical History Diabetic: Yes -: htn -: dm -: hyperlipidemia -: neuropathy -: PVD -: COPD -: bypass -: coronary stent - Family History Family History: Reviewed- Non-Contributory - Social History Smoking Status: Former smoker Alcohol use: No CD- Drugs: No Place of Residence: Home Review of Systems 10-point ROS is otherwise unremarkable Physical Examination - Physical Exam General: Alert, In no apparent distress HEENT: Atraumatic, PERRLA, Mucous membr. moist/pink, EOMI, Sclerae nonicteric Neck: Supple, 2+ carotid pulse no bruit, No LAD, Without JVD or thyroid abnormality Respiratory: Diminished, Crackles/rales (bibasilar rales) Cardiovascular: Normal S1 S2, Irregular heart rate/rhythm Gastrointestinal: Normal bowel sounds, No tenderness Musculoskeletal: No tenderness Integumentary: No rashes Neurological: Normal speech, Normal strength at 5/5 x4 extr, Normal tone, Normal affect Lymphatics: No axilla or inguinal lymphadenopathy - Studies Laboratory Data (last 24 hrs) 04/11/18 21:40: PT 13.2 H, INR 1.12 04/11/18 21:40: WBC 11.2 H, Hgb 13.2 L, Hct 39.0 L, Plt Count 181 04/11/18 21:40: Sodium 139, Potassium 3.7, BUN 12, Creatinine 0.90, Glucose 164 H, Magnesium 1.7 L, Total Bilirubin 1.1 H, AST 17, ALT 19, Alkaline Phosphatase 82 Assessment and Plan - Problems (Diagnosis) (1) ACS (acute coronary syndrome) Current Visit: Yes Status: Acute (2) V-tach Current Visit: Yes Status: Acute (3) Chronic a-fib Current Visit: Yes Status: Acute (4) HTN (hypertension) Current Visit: Yes Status: Acute Qualifiers: Hypertension type: essential hypertension Qualified Code(s): I10 - Essential (primary) hypertension (5) COPD (chronic obstructive pulmonary disease) Current Visit: Yes Status: Acute Qualifiers: COPD type: unspecified COPD Qualified Code(s): J44.9 - Chronic obstructive pulmonary disease, unspecified (6) Diabetes mellitus Current Visit: Yes Status: Acute Qualifiers: Diabetes mellitus type: type 2 Diabetes mellitus termite control service representative insulin use: without snf use Diabetes mellitus complication status: with unspecified complications Qualified Code(s): E11.8 - Type 2 diabetes mellitus with unspecified complications (7) CAD (coronary artery disease) Onset Date: 09/05/17 Current Visit: No Status: Acute Qualifiers: Coronary Disease-Associated Artery/Lesion type: bypass graft [place] vs. transplanted heart: ione heart Associated angina: with unstable angina Qualified Code(s): I25.700 - Atherosclerosis of coronary artery bypass graft(s) , unspecified, with unstable angina pectoris (8) PVD (peripheral vascular disease) Onset Date: 09/05/17 Current Visit: No Status: Acute - Plan The patient will be admitted to ICU due to V-Tach in context of an ACS. Will continue amiodarone drip, anticoagulation with heparin, ASA, Statins, will resume beta ernesto if BP allows it. Awaiting Dr Garza evaluation. - Advance Directives Does patient have a Living Will: No Does patient have a Durable POA for Healthcare: No - Code Status/Comfort Care Code Status Assessed: Yes Code Status: Full Code Critical Care: Yes (60)
[2018-04-12] MEDS ORDERED: ACETAMINOPHEN 500 MG TAB PO PRN (00:32)
[2018-04-12] MEDS ORDERED: Magnesium Sulfate 2gm IVPB 2 G/50 ML BAG IV ONE (00:32)
[2018-04-12] MEDS ORDERED: ONDANSETRON 4 MG/2 ML VIAL IV PRN (00:32)
[2018-04-12] MEDS ORDERED: HEPARIN/D5W 25,000 UNIT/500 ML BAG IV SCH (00:32)
[2018-04-12] MEDS: INSULIN -REGULAR HUMAN 50 UNIT/0.5 ML ML SQ SCH ×5 (00:32→22:03)
[2018-04-12] MEDS ORDERED: ZOLPIDEM TARTRATE 5 MG TABLET PO ONE (01:45)
[2018-04-12] MEDS: AMIODARONE HCL 450 MG in D5W 241 ML IV SCH ×2 (03:45→18:18)
[2018-04-12 05:11] LABS: MCV 87.8 fL (80-100)
[2018-04-12 05:17] LABS: Absolute Monocytes 0.9 K/uL (0.1-1.3); Absolute Neutrophil 8.2 K/uL (1.8-8.0); Basophils % 0.2 % (0-1.3); Eosinophils % 0.4 % (0-4.4); Hematocrit 38.1 % (39.6-49.0); MPV 8.9 fL (7.6-11.3); RBC Red Blood Cell Count 4.34 M/uL (4.33-5.43)
[2018-04-12 05:26] LABS: Potassium 3.4 mmol/L (3.5-5.1)
[2018-04-12] MEDS ORDERED: HEPARIN 5000 UNIT/ML 1 ML VIAL IV SCH (06:00)
[2018-04-12] MEDS: KCL 20 MEQ/100 mL IVPB 20 MEQ/100 ML BAG IV SCH ×2 (06:18→08:36)
--- NOTE | 2018-04-12 07:38 | RAD REPORT ---
EXAM DESCRIPTION: RAD - Chest Single View - 04/11/2018 9:53 pm CLINICAL HISTORY: Weakness, shortness of breath, chest pain, COPD history COMPARISON: September 03, 2017 TECHNIQUE: AP portable chest image was obtained 2149 hours . FINDINGS: Patient has a baseline of chronic interstitial lung disease. No focal mass or consolidatio n. Mid and lower lung field interstitial markings have increased and there are few areas of alveolar opacification present. Sternotomy wires are in place. Cardiomegaly is present. Upper lobe vasculature is mildly prominent, increased over comparison. No measurable pleural effusion and no pneumothorax. No acute bony abnormality seen. No acute aortic findings suspected. IMPRESSION: Bilateral interstitial and minimal alveolar opacities superimposed on the patient's chronometer assembler and adjuster rosie interstitial lung disease. Cardiomegaly and mild vascular engorgement compared to August examination. CHF/ volume overload is favored over interstitial pneumonia.
[2018-04-12] MEDS: GLIMEPIRIDE 2 MG TABLET PO SCH (08:00)
[2018-04-12] MEDS: ASPIRIN 81 MG CHEWABLE TABLET PO SCH (08:35)
[2018-04-12] MEDS: TAMSULOSIN 0.4 MG SR CAP PO SCH (08:35)
[2018-04-12] MEDS: ROSUVASTATIN 10 MG TAB PO SCH (08:35)
[2018-04-12] MEDS: LEVOTHYROXINE SOD 0.112 MG TAB PO SCH (08:35)
[2018-04-12] MEDS: CLOPIDOGREL 75 MG TABLET PO SCH (08:35)
[2018-04-12] MEDS: METOPROLOL TAR 50 MG TAB PO SCH ×2 (08:35→22:02)
[2018-04-12 08:57] LABS: Magnesium 2.1 mg/dL (1.8-2.4)
--- NOTE | 2018-04-12 09:22 | EKG ---
Test Date: 2018-04-11 Test Time: 22:49:54 Floral Arranger: ERICA MEASUREMENT RESULTS: Intervals: Rate: 96 MO: QRSD: 158 QT: 404 QTc: 510 [place]: P: MO: QRS: -39 T: 140 INTERPRETIVE STATEMENTS: Sinus rhythm with frequent premature atrial complexes Left axis deviation Nonspecific intraventricular block Abnormal ECG Compared to ECG 04/11/2018 21:20:30 T-wave abnormality no longer present Possible ischemia no longer present Electronically Signed On 04-12-18 09:21:36 CROSSING GUARD by Naman Xiao
--- NOTE | 2018-04-12 09:23 | EKG ---
Test Date: 2018-04-11 Test Time: 21:20:30 Technical Report Writer: ERICA MEASUREMENT RESULTS: Intervals: Rate: 131 [place]: QRSD: 142 QT: 356 QTc: 525 [place]: P: [place]: QRS: -38 T: 148 INTERPRETIVE STATEMENTS: Sinus tachycardia with frequent premature atrial complexes ie multifocal atrial tachycardia Left axis deviation Nonspecific intraventricular block T wave abnormality, consider lateral ischemia Abnormal ECG Compared to ECG 04/11/2018 21:20:05 T-wave abnormality now present Possible ischemia now present First degree AV block no longer present Electronically Signed On 04-12-18 09:22:48 PSYCHIATRY ADULT PHYSICIAN by Naman Xiao
--- NOTE | 2018-04-12 09:24 | EKG ---
Test Date: 2018-04-11 Test Time: 21:20:05 Hospitality Coordinator: ERICA MEASUREMENT RESULTS: Intervals: Rate: 106 VT: 224 QRSD: 144 QT: 372 QTc: 494 [place]: P: VT: 224 QRS: -35 T: 139 INTERPRETIVE STATEMENTS: Sinus tachycardia with 1st degree AV block Left axis deviation Intraventricular conduction delay Abnormal ECG Compared to ECG 09/05/2017 08:37:42 First degree AV block now present Sinus rhythm no longer present Atrial premature complex(es) no longer present Electronically Signed On 04-12-18 09:23:36 NETWORK CONTRACTOR by Naman Xiao
--- NOTE | 2018-04-12 09:52 | ECHO ---
HEIGHT: 5 ft 6 in WEIGHT: 205 lb 0 oz DATE OF STUDY: 04/12/[address]: Naman Xiao MD 2-DIMENSIONAL: YES M.MODE: YES DOPPLER: YES COLOR FLOW: YES TDS: NO PORTABLE: NO DEFINITY: NO BUBBLE STUDY: NO DIAGNOSIS: CONGESTIVE HEART FAILURE, CORONARY ARTERY DISEASE CARDIAC HISTORY: CATHERIZATION: YES SURGERY: YES PROSTHETIC VALVE: NO PACEMAKER: NO MEASUREMENTS (cm) DIASTOLIC (NORMALS) SYSTOLIC (NORMALS) IVSd 1.2 (0.6-1.2) LA Diam 5.6 (1.9-4.0) LVEF 31% LVIDd 6.0 (3.5-5.7) LVIDs 5.1 (2.0-3.5) %FS 15% LVPWd 1.4 (0.6-1.2) Ao Diam 2.9 (2.0-3.7) 2 DIMENSIONAL ASSESSMENT: RIGHT ATRIUM: NORMAL LEFT ATRIUM: DILATED RIGHT VENTRICLE: NORMAL LEFT VENTRICLE: DILATED TRICUSPID VALVE: NORMAL MITRAL VALVE: LEFT VENTRICULAR HYPERTROPHY PULMONIC VALVE: NORMAL AORTIC VALVE: NORMAL PERICARDIAL EFFUSION: NONE AORTIC ROOT: NORMAL LEFT VENTRICULAR WALL MOTION: POSTERIOR AKINESIS. GLOBAL HYPOKINESIS. DOPPLER/COLOR FLOW: MILD MITRAL REGURGITATION. TRACE OF TRICUSPID REGURGITATION. NORMAL RIGHT VENTRICULAR SYSTOLIC PRESSURE. COMMENTS: DEPRESSED LEFT VENTRICULAR EJECTION FRACTION WITH WALL MOTION ABNORMALITY. DILATED LEFT ATRIUM AND VENTRICLE. LEFT VENTRICULAR HYPERTROPHY. MILD MITRAL REGURGITATION. TRACE OF TRICUSPID REGURGITATION. TECHNOLOGIST: ODALYS KIRBY
[2018-04-12 09:58] LABS: Hematocrit 37.7 % (39.6-49.0)
--- NOTE | 2018-04-12 10:15 | RAD REPORT ---
EXAM DESCRIPTION: RAD - Chest Single View - 04/12/2018 10:09 am CLINICAL HISTORY: Device placement PICC line placement COMPARISON: April 11 FINDINGS: A PICC line has been inserted with its tip in the distal superior vena cava. No change in the mild bilateral pulmonary opacities IMPRESSION: PICC line with its tip in the distal superior vena cava
[2018-04-12] MEDS ORDERED: LIDOCAINE 1% MPF 30 ML VIAL ONE (10:25)
[2018-04-12] MEDS ORDERED: HEPA 1000U/500MLS 1,000 UNIT/500 ML BAG IV ONE ×3 (10:25→14:22)
--- NOTE | 2018-04-12 12:42 | CON ---
Chief Complaint: Syncope. History Of Present Illness: Mr. Coles is a gentleman with history of heart disease, bypass surgery, v chika remotely, he has had several stents. His last cardiac procedure was in August 2017. The stent was placed in the graft, saphenous vein graft to the diagonal or obtuse marginal. He seemed to do well u ntil about 2 weeks ago, he started fainting. We put an event monitor on him and found he has runs of atrial fibrillation and ventricular tachycardia. He came to the ER. His last episode of syncope wa s several days ago, but he has had numerous spells of ventricular tachycardia quite rapid. He is kno wn to have an ejection fraction in the 30s, very severe peripheral vascular disease, COPD, diabetes, hypertension, congestive heart failure, and now ventricular tachycardia. His blood test indicate a t roponin is very elevated. His initial one was 0.72, now it is 3.88. Medications: His outpatient medications have been amlodipine, Flomax, metoprolol, metformin, glimepi ride, gabapentin, Flonase, doxazosin, clopidogrel, cetirizine, rosuvastatin, levothyroxine, and Anoro Ellipta. Social History: He does not use tobacco. Allergies: HE HAS NO ALLERGIES. Past Medical History: Has a history of prostate cancer. Physical Examination: Vital Signs: 5 feet 6 inches, 205 pounds. General: Obese, alert, oriented, not in any respiratory distress. His EKG looks like sinus rhythm i n the 90s. He is on amiodarone drip, but an amiodarone bolus last night going through the peripheral line, not a central line. Lungs: Reveal decreased breath sounds everywhere. Mild diffuse wheezing almost everywhere. Cardiac: Regular rate and rhythm. There is a heart murmur. 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 Abdomen: Soft. Extremities: Trace edema. Impression: There is gross hematuria and a Murray catheter. I think we need to stop heparin. Contin ue amiodarone, but put it through a central line. Continue his beta blockers, rosuvastatin. He need s to have a heart catheterization, would probably need revascularization, would not be surprised if grace santo needs repeat bypass surgery at this point. I would think it is very likely that he has one vessel supplying all the blood flow to his heart, but totally occluded creek right, totally occluded graft to the lateral wall of the heart and the only thing working a patent ABRAMS is his LAD and circumflex a re both occluded ostially. It is basically a left main occlusion, so revascularization options will be minimal. I think we need to have a look at his arteries. If we could put a stent in the graft [place], but most likely it is totally blocked and will probably need to get him a defibrillator. Start thinking of treating him with heart failure medicines. We will do an echocardiogram later today as theresa goel. PRESTON/NIALL Voice ID: [id number] Report ID: [id number]
[2018-04-12] MEDS ORDERED: ATROPINE SULF 1 MG/10 ML SYR IV ONE (13:39)
[2018-04-12] MEDS ORDERED: MIDAZOLAM HCL 2 MG/2 ML INJ ONE ×2 (13:39→13:40)
[2018-04-12] MEDS ORDERED: FENTANYL CITR 100 MCG/2 ML ONE (13:39)
[2018-04-12] MEDS ORDERED: NA CHLORIDE 0.9% 0 ML ONE (13:40)
[2018-04-12] MEDS ORDERED: NA CHLORIDE 0.9% 50 ML ONE ×2 (13:40→14:54)
[2018-04-12] MEDS ORDERED: NA CHLORIDE 0.9% 500 ML ONE (13:42)
[2018-04-12] MEDS ORDERED: NITROGLYCERIN/D5W 25 MG/250 ML BTL IV ONE (14:23)
[2018-04-12] MEDS ORDERED: NITROGLYCERIN 100 MCG/ML SYR (for cath lab use only) IV ONE (14:23)
--- NOTE | 2018-04-12 14:26 | P.PN ---
Subjective Date of Service: 04/12/18 Primary Care Provider: Dr. Spann; Cardiology-Dr. Garza Chief Complaint: ACS/V-Tach Subjective: Other (Shortness of breath improved.) Physical Examination - Vital Signs Temperature: 98.8 F Blood Pressure: 102/46 Pulse: 70 Respirations: 22 Pulse Ox (%): 91 - Physical Exam General: Alert, In no apparent distress, Cooperative HEENT: Atraumatic Neck: Supple Respiratory: Crackles/rales (Bilateral) Cardiovascular: Normal pulses, Regular rate/rhythm Gastrointestinal: Normal bowel sounds, Soft and benign, Non-distended, No masses , No rebound, No guarding Musculoskeletal: No tenderness, No warmth Integumentary: Tenderness/swelling (To the lower extremities bilateral) Neurological: Normal speech, Normal strength at 5/5 x4 extr, Normal tone, Normal affect - Studies Laboratory Data (last 24 hrs) 04/11/18 21:40: PT 13.2 H, INR 1.12 04/11/18 21:40: WBC 11.2 H, Hgb 13.2 L, Hct 39.0 L, Plt Count 181 04/11/18 21:40: Sodium 139, Potassium 3.7, BUN 12, Creatinine 0.90, Glucose 164 H, Magnesium 1.7 L, Total Bilirubin 1.1 H, AST 17, ALT 19, Alkaline Phosphatase 82 Medications List Reviewed: Yes Assessment & Plan Discharge Plan: Transfer Plan to discharge in: Greater than 2 days Physician Review Additional Text: Impression: Acute Coronary Syndrome complicated with acute on chronic systolic CHF with noted episodes of atrial fibrillation, ventricular tachycardia CAD with prior CABG and stents Hypertension Hyperlipidemia COPD Diabetes mellitus type 2 Diabetic neuropathy Hypothyroidism Hematuria with history of prostate cancer likely underlying BPH Obesity, BMI 33.1 Plan: Acute Coronary Syndrome complicated with acute on chronic systolic CHF with noted episodes of atrial fibrillation, ventricular tachycardia: Case discussed at length with cardiology. Echocardiogram shows ejection fraction of about 30. Patient will require heart catheterization. Cardiology to determine when this will be done. This may even be possibly done at an outside facility as the patient may also require defibrillator. Cardiology to discuss with electrophysiology. Patient had some hematuria on heparin. Will hold heparin at this time. Patient on aspirin and Plavix. Continue with metoprolol, Crestor and amiodarone. PICC line to be placed. Will continue to monitor the patient closely. Await further recommendations from cardiology. CAD with prior CABG and stents: Continue as above. Patient will need heart catheterization. Patient likely with blockage. Patient may require transfer if heart catheterization significantly abnormal. Hypertension: Continue with metoprolol. Will monitor and adjust appropriately. Hyperlipidemia: Continue with Crestor. COPD: Will provide Brovana. Will maintain sats above 90%. Will continue with Atrovent. Discontinue albuterol Diabetes mellitus type 2: Will check A1c. Will continue with sliding scale. Will monitor closely. Diabetic neuropathy: Will continue with his medication of gabapentin. Will monitor and adjust appropriately. Hematuria with history of prostate cancer likely underlying BPH: Murray catheter in place. There was some difficulty placing the catheter last night. Heparin has been discontinued as per Cardiology. Case discussed with urology. Urology to further evaluate. Patient to get flushes in the Murray catheter to see if hematuria resolves on its own. Flomax started by Cardiology. Hypothyroidism: Will continue with his medication. Will check tsh and free T4. Obesity, BMI 33.1: Will address lifestyle modification education. Time Spent Managing Pts Care (In Minutes): 55
[2018-04-12] MEDS ORDERED: IPRATROPIUM BROM 0.5MG/2.5ML NEB PRN (14:28)
[2018-04-12] MEDS: FUROSEMIDE 20 MG/ 2ML VIAL IV SCH (15:55)
[2018-04-12] MEDS ORDERED: PRASUGREL (EFFIENT) 10 MG TAB PO ONE (16:00)
[2018-04-12] MEDS ORDERED: NITROGLYCERIN 0.4 MG/TAB SL PRN (16:33)
[2018-04-12] MEDS ORDERED: NA CHLORIDE 0.9% 500 ML IV SCH (17:00)
--- NOTE | 2018-04-12 17:18 | CON ---
History: An 78-year-old gentleman in ICU, bed #7, came in for acute [place]. He has a history of diabete s type 2, COPD, hypertension, dyslipidemia. Currently, he is status post CABG and stenting, chronic atrial fibrillation, syncopal episode 6 days ago. History of prostate cancer diagnosed by Dr. Maynard and refused all treatments. No recent PSAs. He was admitted. Murray catheter was placed. He was g iven anticoagulation started having gross hematuria. Since the anticoagulation has stopped, his urin e has been clearing. Catheter is draining well now and has no clots. Now, he is a very stoic patien t. Does not want anything done about his prostate cancer right now. I do not know what his last PSA was. I would recommend continue to irrigate the catheter p.r.n. and check a PSA tomorrow a.m. The family wants to know and he gave me permission to check a PSA. Allergies: NO KNOWN DRUG ALLERGIES. Home Medications: Norvasc, cetirizine for allergy, Plavix, Cardura, Flonase, gabapentin, Amaryl, met formin, metoprolol, Crestor, tamsulosin. Past Medical History: Diabetes as mentioned, hypertension, hyperlipidemia, neuropathy, prostate canc er untreated, PVD, COPD, bypass, coronary stent. Family History: Noncontributory. Social History: Former smoker. No alcohol use. No drug use. Resides at home. Review of Systems: A 10-point review of systems unremarkable. Physical Examination: General: Afebrile. Stable. HEENT: Atraumatic, normocephalic. Neck: Supple. Cardiovascular: Normal S1, S2. Gastrointestinal: Normal bowel sounds. Musculoskeletal: No tenderness. Skin: No rashes. Neurologic: Alert and oriented. Lymphatics: No axillary lymphadenopathy. Diagnostic Data: EKG and chest x-ray were done. Laboratory Data: Normal white count 10.2, H and H of 12.9 and 37.7, platelet count 167. Coags show PTT elevated to 46.6. PT 13, INR 1.1. Chemistry shows troponin 1 is elevated to 3.88. He did have a PSA in January 2017, which was 3.01, was stable. Microbiology, no urine culture pending so far. Assessment: Gross hematuria from Lovenox. The patient is doing much better now with Lovenox off. H istory of prostate cancer, untreated. PSA is stable at about 3 done January 2017. Continue to irrig ate the catheter and recheck a PSA tomorrow. NAV/NIALL Voice ID: [id number] Report ID: [id number]
[2018-04-12] MEDS ORDERED: AMIODARONE HCL 450 MG in D5W 241 ML IV SCH (17:45)
[2018-04-12] MEDS ORDERED: GLUCAGON 1 MG/VIAL IM PRN (17:56)
[2018-04-12] MEDS ORDERED: D50W 25 GM/50 ML SYRINGE IV PRN (17:56)
[2018-04-12] MEDS: ARFORMOTEROL TARTRATE 15 MCG/2 ML VIAL.NEB NEB SCH (19:15)
[2018-04-12] MEDS ORDERED: ATORVASTATIN 80 MG TAB PO SCH (21:00)
[2018-04-12] MEDS ORDERED: HOME MED 1 EA UNK (Gabapentin [Gralise] 300 MG) PO SCH (21:00)
[2018-04-12] MEDS: Gabapentin 300 MG CAPS PO SCH (21:00)
[2018-04-12] MEDS: ZOLPIDEM TARTRATE 5 MG TABLET PO PRN (22:11)
--- NOTE | 2018-04-13 02:06 | OP ---
Surgeon: Naman Xiao MD Procedures: Left heart catheterization, coronary angiography, saphenous vein angiography, left inter nal mammary artery graft to the left anterior descending artery angiography, percutaneous coronary in tervention of the graft to the obtuse marginal coronary artery. It was an in-stent restenosis, succe ssfully dilated to less than 50% stenosis. Procedure Findings: The patient has a totally occluded left main, totally occluded right coronary ar [place]. The graft to the right coronary artery is totally occluded. The graft to the obtuse marginal artery has a saphenous vein graft that had been stented in august 2017. There was in-stent stenosis of 80% to 90% and LANCE grade 0-1 flow distal to it. After the procedure, there was less than 50% stenos is in one small segment, for the most part it was 0% stenosis and LANCE grade 3 flow. The left news intern al mammary artery graft to the LAD is widely patent and flow to the LAD is LANCE grade 3. An LV-gram was not done. Procedure In Detail: The patient was known to have totally occluded RCA and left main. He was known to have a totally occluded right iliac artery. We used the left femoral artery to do the procedure. He was prepared and draped in usual sterile fashion, sedated with Versed and fentanyl. The artery was entered after anesthesia with 1% lidocaine with an 18-gauge needle with a modified Seldinger tech nique and 4-American sheath. We used a JL4 and JR4 to angiogram the left main, right coronary, sapheno us vein graft to internal mammary. After decision was made to do a stent, we gave Angiomax, exchange d for a 6-American sheath, demonstrated an active clotting time greater than 400 seconds. We used a 3D RC with side holes guide. We were able to cross and dilate the lesion with a 3.5 x 16 x 15 Emerge ba lloon. All of the dilations were within the old stent. The more proximal part of the lesion we were able to re-stent; a stent within a stent. It was a 3.5 x 12 Synergy stent. The more distal part of the lesion could not be stented; it could be dilated. So, the old stent was dilated and there was a dequate angiographic result. At the end of the procedure, an angiogram was done of the left femoral artery. Adequate anatomy was seen and we did an Angio-Seal to close the arteriotomy. Estimated Blood Loss: 100 cc. Complications: None. PRESTON/NIALL Voice ID: [id number] Report ID: [id number]
[2018-04-13] MEDS: LEVOTHYROXINE SOD 0.112 MG TAB PO SCH (05:59)
[2018-04-13] MEDS: PANTOPRAZOLE 40MG TABLET PO SCH (05:59)
[2018-04-13 06:29] LABS: Absolute Lymphocytes (CBC) 0.9 K/uL (0.7-4.9); Absolute Monocytes 0.9 K/uL (0.1-1.3); Absolute Neutrophil 9.1 K/uL (1.8-8.0); Basophils % 0.7 % (0-1.3); Eosinophils % 0.1 % (0-4.4); Hematocrit 34.5 % (39.6-49.0); Lymphocytes % 8.1 % (15.3-44.8); MCH 29.9 pg (27.0-35.0); MCV 86.4 fL (80-100); MPV 8.9 fL (7.6-11.3); Monocytes % 8.1 % (3.3-12.3)
[2018-04-13 06:42] LABS: Magnesium 2.3 mg/dL (1.8-2.4); Potassium 3.8 mmol/L (3.5-5.1)
[2018-04-13] MEDS: INSULIN -REGULAR HUMAN 50 UNIT/0.5 ML ML SQ SCH ×4 (07:14→21:00)
[2018-04-13] MEDS: ROSUVASTATIN 10 MG TAB PO SCH (08:31)
[2018-04-13] MEDS: METOPROLOL TAR 50 MG TAB PO SCH ×2 (08:31→21:27)
[2018-04-13] MEDS: GLIMEPIRIDE 2 MG TABLET PO SCH (08:31)
[2018-04-13] MEDS: FUROSEMIDE 20 MG/ 2ML VIAL IV SCH ×2 (08:31→17:04)
[2018-04-13] MEDS: CLOPIDOGREL 75 MG TABLET PO SCH (08:31)
[2018-04-13] MEDS: TAMSULOSIN 0.4 MG SR CAP PO SCH (08:31)
[2018-04-13] MEDS: ASPIRIN 81 MG CHEWABLE TABLET PO SCH (08:31)
[2018-04-13] MEDS: AMIODARONE HCL 450 MG in D5W 241 ML IV SCH (08:36)
--- NOTE | 2018-04-13 10:42 | P.PN ---
Subjective Date of Service: 04/13/18 Primary Care Provider: Dr. Spann; Cardiology-Dr. Garza Chief Complaint: ACS/V-Tach Subjective: Improving (Patient doing better.) Physical Examination - Vital Signs Temperature: 99.0 F Blood Pressure: 113/72 Pulse: 69 Respirations: 17 Pulse Ox (%): 94 - Physical Exam General: Alert, In no apparent distress, Oriented x3, Cooperative HEENT: Atraumatic Neck: Supple Respiratory: Crackles/rales (Less crackles to the bases) Cardiovascular: Normal pulses, Regular rate/rhythm Gastrointestinal: Normal bowel sounds, Soft and benign, Non-distended, No tenderness, No masses, No rebound, No guarding Musculoskeletal: No erythema, No tenderness, No warmth Integumentary: No tenderness/swelling, No erythema, No warmth, No cyanosis Neurological: Normal speech, Normal strength at 5/5 x4 extr, Normal tone, Normal affect - Studies Medications List Reviewed: Yes Assessment & Plan Discharge Plan: Home Plan to discharge in: 48 Hours Physician Review Additional Text: Impression: Acute Coronary Syndrome complicated with acute on chronic systolic CHF with noted episodes of atrial fibrillation, ventricular tachycardia CAD with prior CABG and stents Hypertension Hyperlipidemia COPD Diabetes mellitus type 2 Diabetic neuropathy Hypothyroidism Hematuria with history of prostate cancer likely underlying BPH Obesity, BMI 33.1 Plan: Acute Coronary Syndrome complicated with acute on chronic systolic CHF ejection fraction 30% with noted episodes of atrial fibrillation, ventricular tachycardia : Case discussed at length with cardiology yesterday. Patient to have heart catheterization today. Ejection fraction shows 30% on echocardiogram. Lasix was added. Await further recommendations from cardiology. Patient currently on metoprolol, Crestor and amiodarone. CAD with prior CABG and stents: Continue as above. Patient will need heart catheterization. Heart catheterization planned for today. Hypertension: Continue with metoprolol. Will monitor and adjust appropriately. Hyperlipidemia: Continue with Crestor. COPD: Will continue with Brovana. Will maintain sats above 90%. Will continue with Atrovent. Discontinue albuterol Diabetes mellitus type 2: Will check A1c. Will continue with sliding scale. Will monitor closely. Diabetic neuropathy: Will continue with his medication of gabapentin. Will monitor and adjust appropriately. Hematuria with history of prostate cancer likely underlying BPH: Murray catheter in place. Hematuria resolving. Will continue monitor closely. Catheter in place. PSA elevated. This can be further evaluated by urology as an outpatient. Hypothyroidism: Will continue with his medication. Will check tsh and free T4. Obesity, BMI 33.1: Will address lifestyle modification education. Heart catheterization done. Surgeon: Naman Xiao MD Procedures: Left heart catheterization, coronary angiography, saphenous vein angiography, left internal mammary artery graft to the left anterior descending artery angiography, percutaneous coronary intervention of the graft to the obtuse marginal coronary artery. It was an in-stent restenosis, successfully dilated to less than 50% stenosis. Time Spent Managing Pts Care (In Minutes): 55
[2018-04-13] MEDS: ARFORMOTEROL TARTRATE 15 MCG/2 ML VIAL.NEB NEB SCH ×2 (11:23→19:36)
[2018-04-13] MEDS: ACETAMINOPHEN 325 MG TABLET PO PRN ×3 (11:51→21:27)
[2018-04-13] MEDS: Gabapentin 300 MG CAPS PO SCH (21:00)
[2018-04-14] MEDS: AMIODARONE HCL 450 MG in D5W 241 ML IV SCH (02:26)
[2018-04-14] MEDS: PANTOPRAZOLE 40MG TABLET PO SCH (05:40)
[2018-04-14] MEDS: LEVOTHYROXINE SOD 0.112 MG TAB PO SCH (05:40)
[2018-04-14 06:12] LABS: Absolute Lymphocytes (CBC) 0.8 K/uL (0.7-4.9); Absolute Monocytes 0.7 K/uL (0.1-1.3); Absolute Neutrophil 7.7 K/uL (1.8-8.0); Basophils % 0.3 % (0-1.3); Eosinophils % 1.8 % (0-4.4); Lymphocytes % 8.3 % (15.3-44.8); MCH 30.3 pg (27.0-35.0); MCV 86.4 fL (80-100); Monocytes % 7.1 % (3.3-12.3); RBC Red Blood Cell Count 3.82 M/uL (4.33-5.43)
--- NOTE | 2018-04-14 06:33 | RAD REPORT ---
EXAM DESCRIPTION: Alok Single View04/14/2018 6:06 am CLINICAL HISTORY: Shortness of breath COMPARISON: None FINDINGS: Mild bilateral social lung opacities partially resolved. The heart is mildly to moderately enlarged. Postsurgical changes involve the chest. IMPRESSION: Partial resolution in mild bilateral interstitial lung opacities
[2018-04-14 06:46] LABS: Magnesium 2.2 mg/dL (1.8-2.4); Potassium 3.6 mmol/L (3.5-5.1)
[2018-04-14] MEDS: INSULIN -REGULAR HUMAN 50 UNIT/0.5 ML ML SQ SCH ×4 (07:18→21:00)
[2018-04-14] MEDS: ARFORMOTEROL TARTRATE 15 MCG/2 ML VIAL.NEB NEB SCH ×2 (07:54→19:56)
[2018-04-14] MEDS: FUROSEMIDE 20 MG/ 2ML VIAL IV SCH (08:17)
[2018-04-14] MEDS: ROSUVASTATIN 10 MG TAB PO SCH (08:17)
[2018-04-14] MEDS: METOPROLOL TAR 50 MG TAB PO SCH ×2 (08:18→21:00)
[2018-04-14] MEDS: CLOPIDOGREL 75 MG TABLET PO SCH (08:19)
[2018-04-14] MEDS: TAMSULOSIN 0.4 MG SR CAP PO SCH (08:19)
[2018-04-14] MEDS: ASPIRIN 81 MG CHEWABLE TABLET PO SCH (08:19)
[2018-04-14] MEDS: GLIMEPIRIDE 2 MG TABLET PO SCH (08:19)
--- NOTE | 2018-04-14 08:57 | P.PN ---
Subjective Date of Service: 04/14/18 Primary Care Provider: Dr. Spann; Cardiology-Dr. Garza Chief Complaint: ACS/V-Tach Subjective: Doing well (No complaints noted.) Physical Examination - Vital Signs Temperature: 97.7 F Blood Pressure: 92/63 Pulse: 86 Respirations: 20 Pulse Ox (%): 91 - Physical Exam General: Alert, In no apparent distress, Cooperative HEENT: Atraumatic Neck: Supple Respiratory: Crackles/rales (To the bases bilateral but improved) Cardiovascular: Normal pulses, Regular rate/rhythm Gastrointestinal: Normal bowel sounds, Soft and benign, Non-distended, No tenderness, No masses, No rebound, No guarding Musculoskeletal: No erythema, No tenderness, No warmth Integumentary: No tenderness/swelling, No erythema, No warmth, No cyanosis Neurological: Normal speech, Normal strength at 5/5 x4 extr, Normal tone, Normal affect - Studies Medications List Reviewed: Yes Assessment & Plan Discharge Plan: Transfer Plan to discharge in: 24 Hours Physician Review Additional Text: Impression: Acute Coronary Syndrome complicated with acute on chronic systolic CHF ejection fraction 30% with noted episodes of atrial fibrillation, ventricular tachycardia status post successful dilation of in stent restenosis CAD with prior CABG and stents Hypertension Hyperlipidemia COPD Diabetes mellitus type 2 Diabetic neuropathy Hypothyroidism Hematuria with history of prostate cancer likely underlying BPH Obesity, BMI 33.1 Plan: Acute Coronary Syndrome complicated with acute on chronic systolic CHF ejection fraction 30% with noted episodes of atrial fibrillation, ventricular tachycardia status post successful dilation of in stent restenosis: Patient doing well post heart catheterization. Patient had totally occluded left main, totally occluded right Coronary artery. The graft to the Right Coronary artery was totally occluded. Graft to the obtuse marginal artery has a saphenous vein graft that had been stented in August of 2017. There was in stent stenosis of 80- 90% and LANCE grade 0-1 flow distal to it. After procedure there was less than 50% stenosis in 1 small segment for the most part it was 0% stenosis and LANCE grade 3 flow. The left internal mammary artery graft to the LAD is widely patent and flow to the LAD is LANCE grade 3. Continue with IV amiodarone. Continue with cardiology recommendation. Patient to be transferred early tomorrow for defibrillator placement. Patient started on Entresto for his CHF. Will adjust IV Lasix to oral. Chest x-ray shows improvement. Continue to wean off oxygen. CAD with prior CABG and stents: Continue as above. Hypertension: Continue with metoprolol. Patient also on Entresto. Will monitor and adjust appropriately. Hyperlipidemia: Continue with Crestor. COPD: Will continue with Brovana. Will maintain sats above 90%. Will continue with Atrovent. Will try to wean off oxygen. Diabetes mellitus type 2: Will check A1c. Will continue with sliding scale. Will monitor closely. Diabetic neuropathy: Will continue with his medication of gabapentin. Will monitor and adjust appropriately. Hematuria with history of prostate cancer likely underlying BPH: Murray catheter in place. Hematuria resolved. Will continue monitor closely. Catheter in place. PSA elevated. This can be further evaluated by urology as an outpatient. Hypothyroidism: Will continue with his medication. Obesity, BMI 33.1: Will address lifestyle modification education. Time Spent Managing Pts Care (In Minutes): 55
[2018-04-14] MEDS ORDERED: POTASSIUM CL SA 10 MEQ TAB PO ONE (09:00)
[2018-04-14] MEDS: FUROSEMIDE 40 MG TABLET PO SCH ×2 (09:31→17:11)
[2018-04-14] MEDS: SACUBITRIL/VALSARTAN 24/26 MG TAB PO SCH ×2 (09:35→21:00)
[2018-04-14] MEDS: AMIODARONE HCL 200 MG TAB PO SCH ×2 (11:59→17:09)
--- NOTE | 2018-04-14 12:02 | PN ---
Mr. Head feels well, still has brief runs of ventricular tachycardia. The thing that would be long e nough to cause syncope. We will switch him to oral amiodarone, stop the IV, and plan on trying to tr ansfer him to [facility], so he can probably get a defibrillator before he is discharged home. PRESTON/NIALL Voice ID: [id number] Report ID: [id number]
[2018-04-14] MEDS: Gabapentin 300 MG CAPS PO SCH (21:00)
[2018-04-14] MEDS: ACETAMINOPHEN 325 MG TABLET PO PRN (21:41)
[2018-04-14] MEDS: ZOLPIDEM TARTRATE 5 MG TABLET PO PRN (23:35)
[2018-04-15 04:24] VITALS: BMI 31.9
[2018-04-15 05:41] LABS: Absolute Lymphocytes (CBC) 0.8 K/uL (0.7-4.9); Absolute Monocytes 0.6 K/uL (0.1-1.3); Absolute Neutrophil 5.4 K/uL (1.8-8.0); Basophils % 0.6 % (0-1.3); Eosinophils % 4.7 % (0-4.4); Hematocrit 33.2 % (39.6-49.0); Lymphocytes % 11.2 % (15.3-44.8); MCH 29.8 pg (27.0-35.0); Monocytes % 8.5 % (3.3-12.3); RBC Red Blood Cell Count 3.81 M/uL (4.33-5.43)
[2018-04-15] MEDS: PANTOPRAZOLE 40MG TABLET PO SCH (05:41)
[2018-04-15] MEDS: LEVOTHYROXINE SOD 0.112 MG TAB PO SCH (05:41)
[2018-04-15 05:42] VITALS: TEMP 98.3
[2018-04-15 05:44] LABS: Magnesium 2.5 mg/dL (1.8-2.4); Potassium 3.5 mmol/L (3.5-5.1)
[2018-04-15] MEDS: INSULIN -REGULAR HUMAN 50 UNIT/0.5 ML ML SQ SCH (07:30)
[2018-04-15] MEDS: GLIMEPIRIDE 2 MG TABLET PO SCH (08:00)
[2018-04-15 08:25] VITALS: O2SAT 96
[2018-04-15] MEDS: ASPIRIN 81 MG CHEWABLE TABLET PO SCH (08:40)
[2018-04-15] MEDS: TAMSULOSIN 0.4 MG SR CAP PO SCH (08:40)
[2018-04-15] MEDS: CLOPIDOGREL 75 MG TABLET PO SCH (08:40)
[2018-04-15] MEDS: METOPROLOL TAR 50 MG TAB PO SCH (08:40)
[2018-04-15] MEDS: AMIODARONE HCL 200 MG TAB PO SCH (08:41)
[2018-04-15] MEDS: ROSUVASTATIN 10 MG TAB PO SCH (08:41)
[2018-04-15] MEDS: FUROSEMIDE 40 MG TABLET PO SCH (08:41)
[2018-04-15] MEDS: SACUBITRIL/VALSARTAN 24/26 MG TAB PO SCH (08:43)
[2018-04-15 08:46] VITALS: BP 126/54
[2018-04-15] MEDS: ARFORMOTEROL TARTRATE 15 MCG/2 ML VIAL.NEB NEB SCH (09:50)
--- NOTE | 2018-04-15 10:03 | P.PN ---
Subjective Date of Service: 04/15/18 Primary Care Provider: Dr. Spann; Cardiology-Dr. Garza Chief Complaint: ACS/V-Tach Subjective: Improving Physical Examination - Vital Signs Temperature: 98.3 F Blood Pressure: 126/54 Pulse: 71 Respirations: 15 Pulse Ox (%): 97 - Physical Exam General: Alert, In no apparent distress, Oriented x3, Cooperative HEENT: Atraumatic Neck: Supple Respiratory: Clear to auscultation bilaterally, Normal air movement Cardiovascular: Normal pulses, Regular rate/rhythm Gastrointestinal: Normal bowel sounds, Soft and benign, Non-distended, No tenderness, No masses, No rebound, No guarding Musculoskeletal: No erythema, No tenderness, No warmth Integumentary: No tenderness/swelling, No erythema, No warmth, No cyanosis Neurological: Normal speech, Normal strength at 5/5 x4 extr, Normal tone, Normal affect Lymphatics: No axilla or inguinal lymphadenopathy - Studies Medications List Reviewed: Yes Assessment & Plan Discharge Plan: Transfer Plan to discharge in: 24 Hours Physician Review Additional Text: Impression: Acute Coronary Syndrome complicated with acute on chronic systolic CHF ejection fraction 30% with noted episodes of atrial fibrillation, ventricular tachycardia status post successful dilation of in stent restenosis CAD with prior CABG and stents Hypertension Hyperlipidemia COPD Diabetes mellitus type 2 Diabetic neuropathy Hypothyroidism Hematuria with history of prostate cancer likely underlying BPH Obesity, BMI 33.1 Plan: Acute Coronary Syndrome complicated with acute on chronic systolic CHF ejection fraction 30% with noted episodes of atrial fibrillation, ventricular tachycardia status post successful dilation of in stent restenosis: Patient doing well post heart catheterization. Patient had totally occluded left main, totally occluded right Coronary artery. The graft to the Right Coronary artery was totally occluded. Graft to the obtuse marginal artery has a saphenous vein graft that had been stented in August of 2017. There was in stent stenosis of 80- 90% and LANCE grade 0-1 flow distal to it. After procedure there was less than 50% stenosis in 1 small segment for the most part it was 0% stenosis and LANCE grade 3 flow. The left internal mammary artery graft to the LAD is widely patent and flow to the LAD is LANCE grade 3. Patient transitioned to oral amiodarone. Continue with Entresto and Lasix for his CHF. Advanced directives address in detail with patient and family yesterday. After long discussion patient wishes to continue with the possibility of defibrillator placement. Spoke with Cardiology this morning. Plan is to transfer patient for defibrillator placement. This will likely occur today. Please note patient was considering advanced directives of DNR in the future but after explanation of defibrillator patient wishes to try this route 1st. If patient remains in the hospital for tomorrow, I will turn the service over to Dr. Irizarry who will take over. I will go over the plan of care with her. CAD with prior CABG and stents: Continue as above. Hypertension: Continue with metoprolol. Patient also on Entresto. Will monitor and adjust appropriately. Hyperlipidemia: Continue with Crestor. COPD: Will continue with Brovana. Will maintain sats above 90%. Will continue with Atrovent. Will try to wean off oxygen. Diabetes mellitus type 2: Will check A1c. Will continue with sliding scale. Will monitor closely. Diabetic neuropathy: Will continue with his medication of gabapentin. Will monitor and adjust appropriately. Hematuria with history of prostate cancer likely underlying BPH: Murray catheter in place. Hematuria resolved. Will continue monitor closely. Catheter in place. PSA elevated. This can be further evaluated by urology as an outpatient. Hypothyroidism: Will continue with his medication. Obesity, BMI 33.1: Will address lifestyle modification education. Time Spent Managing Pts Care (In Minutes): 55
--- NOTE | 2018-04-15 10:42 | P.DS ---
Admission Date: 04/11/18 Discharge Date: 04/15/18 Primary Care Provider: Dr. Spann; Cardiology-Dr. Garza Disposition: TRANSFER TO [facility] Discharge Condition: FAIR Reason for Admission: ACS/V-Tach Consultations: Cardiology-Dr. Xaio Procedures: Heart catheterization: Date: 04/12/2018 Surgeon: Naman Xiao MD Procedures: Left heart catheterization, coronary angiography, saphenous vein angiography, left internal mammary artery graft to the left anterior descending artery angiography, percutaneous coronary intervention of the graft to the obtuse marginal coronary artery. It was an in-stent restenosis, successfully dilated to less than 50% stenosis. Procedure Findings: The patient has a totally occluded left main, totally occluded right coronary artery. The graft to the right coronary artery is totally occluded. The graft to the obtuse marginal artery has a saphenous vein graft that had been stented in august 2017. There was in-stent stenosis of 80% to 90% and LANCE grade 0-1 flow distal to it. After the procedure, there was less than 50% stenosis in one small segment, for the most part it was 0% stenosis and LANCE grade 3 flow. The left internal mammary artery graft to the LAD is widely patent and flow to the LAD is LANCE grade 3. An LV-gram was not done. Procedure In Detail: The patient was known to have totally occluded RCA and left main. He was known to have a totally occluded right iliac artery. We used the left femoral artery to do the procedure. He was prepared and draped in usual sterile fashion, sedated with Versed and fentanyl. The artery was entered after anesthesia with 1% lidocaine with an 18-gauge needle with a modified Seldinger technique and 4-[place] sheath. We used a JL4 and JR4 to angiogram the left main, right coronary, saphenous vein graft to internal mammary. After decision was made to do a stent, we gave Angiomax, exchanged for a 6-[place] sheath, demonstrated an active clotting time greater than 400 seconds. We used a 3DRC with side holes guide. We were able to cross and dilate the lesion with a 3.5 x 16 x 15 Emerge balloon. All of the dilations were within the old stent. The more proximal part of the lesion we were able to re-stent; a stent within a stent. It was a 3.5 x 12 Synergy stent. The more distal part of the lesion could not be stented; it could be dilated. So, the old stent was dilated and there was adequate angiographic result. At the end of the procedure, an angiogram was done of the left femoral artery. Adequate anatomy was seen and we did an Angio-Seal to close the arteriotomy. Estimated Blood Loss: 100 cc. Complications: None. Echocardiogram: EF 31% LEFT VENTRICULAR WALL MOTION: POSTERIOR AKINESIS. GLOBAL HYPOKINESIS. DOPPLER/COLOR FLOW: MILD MITRAL REGURGITATION. TRACE OF TRICUSPID REGURGITATION. NORMAL RIGHT VENTRICULAR SYSTOLIC PRESSURE. COMMENTS: DEPRESSED LEFT VENTRICULAR EJECTION FRACTION WITH WALL MOTION ABNORMALITY. DILATED LEFT ATRIUM AND VENTRICLE. LEFT VENTRICULAR HYPERTROPHY. MILD MITRAL REGURGITATION. TRACE OF TRICUSPID REGURGITATION Impression: Acute Coronary Syndrome complicated with acute on chronic systolic CHF ejection fraction 30% with noted episodes of atrial fibrillation, ventricular tachycardia status post successful dilation of in stent restenosis CAD with prior CABG and stents Hypertension Hyperlipidemia COPD Diabetes mellitus type 2 Diabetic neuropathy Hypothyroidism Hematuria with history of prostate cancer likely underlying BPH Obesity, BMI 33.1 Brief History of Present Illness: 78-year-old male presented to the emergency room with syncopal episode last week. Patient found to have atrial fibrillation and V-tach on EKG. Patient found to have acute Coronary Syndrome. Patient admitted for further treatment. Hospital Course: Patient presented with Acute Coronary Syndrome complicated with acute on chronic systolic CHF ejection fraction 30% with noted episodes of atrial fibrillation, ventricular tachycardia status post successful dilation of in stent restenosis. Patient doing well post heart catheterization. Patient had totally occluded left main, totally occluded right Coronary artery. The graft to the Right Coronary artery was totally occluded. Graft to the obtuse marginal artery has a saphenous vein graft that had been stented in August of 2017. There was in stent stenosis of 80-90% and LANCE grade 0-1 flow distal to it. After procedure there was less than 50% stenosis in 1 small segment for the most part it was 0% stenosis and LANCE grade 3 flow. The left internal mammary artery graft to the LAD is widely patent and flow to the LAD is LANCE grade 3. Patient has been transition to oral amiodarone. Patient continues with Entresto and Lasix for his CHF. Patient to be transferred to [facility] for defibrillator placement. This was arranged by Cardiology. Patient CAD with prior CABG and stents. Continue as above Patient with hypertension. Patient currently on metoprolol and Entresto. Patient will continue with current medications. Patient with hyperlipidemia. Patient currently on Crestor. Patient will continue with current medication. Patient with COPD. Patient may continue with Brovana. Maintain sats above 90% is recommended. This can be transition to his COPD medication at discharge. Patient with diabetes mellitus type 2. Patient currently on sliding scale. This can be [facility] at [facility]. Patient had episode of hematuria. Patient with history of prostate cancer likely now with BPH. Patient currently on Flomax. Prior to Murray catheter to be removed. This can be further addressed at [facility]. Patient with hypothyroidism. Patient will continue with his medication. Vital Signs/Physical Exam: Temp Pulse Resp BP Pulse Ox 98.3 F 71 15 126/54 L 97 04/15/18 10:03 04/15/18 10:03 04/15/18 10:03 04/15/18 10:03 04/15/18 10:03 General: Alert, In no apparent distress, Oriented x3, Cooperative HEENT: Atraumatic Neck: Supple Respiratory: Crackles/rales (Minimal crackles to the bases) Cardiovascular: Normal pulses, Regular rate/rhythm Gastrointestinal: Normal bowel sounds, Soft and benign, Non-distended, No masses , No rebound, No guarding Musculoskeletal: No erythema, No tenderness, No warmth Integumentary: No tenderness/swelling, No erythema, No warmth, No cyanosis Neurological: Normal speech, Normal strength at 5/5 x4 extr, Normal tone, Normal affect Laboratory Data at Discharge: WBC 7.1 K/uL (4.3-10.9) D 04/15/18 04:50 Hgb 11.3 g/dL (13.6-17.9) L 04/15/18 04:50 Hct 33.2 % (39.6-49.0) L 04/15/18 04:50 Plt Count 218 K/uL (152-406) 04/15/18 04:50 PT 13.2 SECONDS (9.5-12.5) H 04/11/18 21:40 INR 1.12 04/11/18 21:40 APTT 30.1 SECONDS (24.3-36.9) 04/12/18 09:49 Sodium 138 mmol/L (136-145) 04/15/18 04:50 Potassium 3.5 mmol/L (3.5-5.1) 04/15/18 04:50 BUN 30 mg/dL (7-18) H 04/15/18 04:50 Creatinine 1.00 mg/dL (0.55-1.3) 04/15/18 04:50 Glucose 133 mg/dL (74-106) H 04/15/18 04:50 Magnesium 2.5 mg/dL (1.8-2.4) H 04/15/18 04:50 Total Bilirubin 1.1 mg/dL (0.2-1.0) H 04/11/18 21:40 AST 17 U/L (15-37) 04/11/18 21:40 ALT 19 U/L (12-78) 04/11/18 21:40 Alkaline Phosphatase 82 U/L (45-117) 04/11/18 21:40 Troponin I 10.40 ng/mL (0.0-0.045) H* 04/12/18 16:07 Triglycerides 105 mg/dL (<150) 04/12/18 04:30 Cholesterol 144 mg/dL (<200) 04/12/18 04:30 HDL Cholesterol 68 mg/dL (40-60) H 04/12/18 04:30 Cholesterol/HDL Ratio 2.12 04/12/18 04:30 Home Medications: Amlodipine [Norvasc] 10 mg PO DAILY 09/04/17 Cetirizine HCl [All Day Allergy] 10 mg PO DAILY 09/04/17 Clopidogrel Bisulfate [Plavix*] 75 mg PO DAILY 09/04/17 Doxazosin [Cardura*] 2 mg PO BEDTIME 09/04/17 Fluticasone [Flonase 50MCG Nasal [place]*] 1 inh IN DAILY 09/04/17 Gabapentin [Gralise] 300 mg PO BEDTIME 09/04/17 Glimepiride [Amaryl] 2 mg PO DAILY 09/04/17 Metformin ER [Glucophage ER*] 500 mg PO BID 09/04/17 Metoprolol Tartrate [Lopressor] 50 mg PO BID 09/04/17 Tamsulosin [Flomax*] 0.4 mg PO DAILY 09/04/17 Levothyroxine [Synthroid*] 0.112 mg PO DAILY 04/12/18 Rosuvastatin [Crestor*] 10 mg PO DAILY 04/12/18 Umeclidinium Brm/Vilanterol Tr [Anoro Ellipta 62.5-25 Mcg INH] 1 puff IH DAILYPRN PRN 04/12/18 Patient Discharge Instructions: 1. Patient be transferred for defibrillator placement. 2. Patient presented with Acute Coronary Syndrome complicated with acute on chronic systolic CHF ejection fraction 30% with noted episodes of atrial fibrillation, ventricular tachycardia status post successful dilation of in stent restenosis. Patient doing well post heart catheterization. Patient had totally occluded left main, totally occluded right Coronary artery. The graft to the Right Coronary artery was totally occluded. Graft to the obtuse marginal artery has a saphenous vein graft that had been stented in August of 2017. There was in stent stenosis of 80-90% and LANCE grade 0-1 flow distal to it. After procedure there was less than 50% stenosis in 1 small segment for the most part it was 0% stenosis and LANCE grade 3 flow. The left internal mammary artery graft to the LAD is widely patent and flow to the LAD is LANCE grade 3. Patient transitioned to oral amiodarone. Patient continues with Entresto and Lasix for his CHF. Plan is to transfer patient for defibrillator placement. 3. CAD with prior CABG and stents: Continue as above. 4. Hypertension: Continue with metoprolol. Patient also on Entresto. Will monitor and adjust appropriately. 5. Hyperlipidemia: Continue with Crestor. 6. COPD: Will continue with Brovana. Will maintain sats above 90%. Will continue with Atrovent. Will try to wean off oxygen. 7. Diabetes mellitus type 2: Will continue with sliding scale. Will monitor closely. 8. Diabetic neuropathy: Will continue with his medication of gabapentin. Will monitor and adjust appropriately. 9. Hematuria with history of prostate cancer likely underlying BPH: Murray catheter in place. Hematuria resolved. Will continue monitor closely. Catheter in place. PSA elevated. This can be further evaluated by urology as an outpatient. 10. Hypothyroidism: Will continue with his medication. 11. Obesity, BMI 33.1: Will address lifestyle modification education. Diet: AHA Activity: Fall precautions Time spent managing pt's care (in minutes): 60
== END 2018-04-15 10:55 | disposition short-term general hospital (02) | DRG 246 ==
LOC: ER 21:22 → ERHOLD 23:37 → 3RD-ICU 23:59 → UNDODISIN 04-12 16:25
PROVIDERS: ADMIT Internal Medicine; ATTEND Family Medicine
PROC: 027034Z Dilation of Coronary Artery, One Artery with Drug-eluting Intraluminal Device, Percutaneous Approach (ICD-10-PCS; principal; 2018-04-12)
PROC: 4A023N7 Measurement of Cardiac Sampling and Pressure, Left Heart, Percutaneous Approach (ICD-10-PCS; 2018-04-12)
PROC: B211YZZ Fluoroscopy of Multiple Coronary Arteries using Other Contrast (ICD-10-PCS; 2018-04-12)
PROC: B213YZZ Fluoroscopy of Multiple Coronary Artery Bypass Grafts using Other Contrast (ICD-10-PCS; 2018-04-12)
PROC: B218YZZ Fluoroscopy of Left Internal Mammary Bypass Graft using Other Contrast (ICD-10-PCS; 2018-04-12)
PROC: 02HV33Z Insertion of Infusion Device into Superior Vena Cava, Percutaneous Approach (ICD-10-PCS; 2018-04-12)
PROC: B548ZZA Ultrasonography of Superior Vena Cava, Guidance (ICD-10-PCS; 2018-04-12)
DX: T82.855A Stenosis of coronary artery stent, initial encounter (principal); I50.23 Acute on chronic systolic (congestive) heart failure; I24.9 Acute ischemic heart disease, unspecified; I25.810 Atherosclerosis of coronary artery bypass graft(s) without angina pectoris; I47.2 Ventricular tachycardia; Y84.0 Cardiac catheterization as the cause of abnormal reaction of the patient, or of later complication, without mention of misadventure at the time of the procedure; Y92.019 Unspecified place in single-family (private) house as the place of occurrence of the external cause; I25.10 Atherosclerotic heart disease of native coronary artery without angina pectoris; Z95.1 Presence of aortocoronary bypass graft; Z95.5 Presence of coronary angioplasty implant and graft; I11.0 Hypertensive heart disease with heart failure; E78.5 Hyperlipidemia, unspecified; J44.9 Chronic obstructive pulmonary disease, unspecified; E11.40 Type 2 diabetes mellitus with diabetic neuropathy, unspecified; E03.9 Hypothyroidism, unspecified; N40.0 Benign prostatic hyperplasia without lower urinary tract symptoms; C61 Malignant neoplasm of prostate; E66.9 Obesity, unspecified; Z68.33 Body mass index [BMI] 33.0-33.9, adult; Z87.891 Personal history of nicotine dependence; I48.2 Chronic atrial fibrillation; I73.9 Peripheral vascular disease, unspecified; R31.0 Gross hematuria
CPT/HCPCS: 36415; 51702; 71045; 80048; 80061; 80076; 82962; 83036; 83735; 83880; 84132; 84153; 84484; 85014; 85018; 85025; 85347; 85610; 85730; 87086; 87088; 93005; 93306; 93459; 94640; 99285; C1725; C1760; C1893; C9604; J0282; J0583; J1644; J1940; J2250; J3010; J3475; J7060; J7605